=== PATIENT | female | born 1975 | race Caucasian/White ===

== ENCOUNTER 2020-05-07 14:18 | Day surgery (SDC) | payer OTHER ==
[~2020-05-07] VITALS: Ht 177.8 cm; Wt 79.3 kg
[~2020-05-07 14:18] MED LIST: BUPIVACAINE/PF 0.5% ONE; EPINEPHRINE 1 MG/ML, 1ML ONE
[2020-05-07 14:52] VITALS: BP 97/59
[2020-05-07] MEDS ORDERED: PLEASE ENTER ALLERGIES MC SCH (15:00)
[2020-05-07] MEDS ORDERED: CHLORHEXIDINE 15 ML UDC PO ONE (15:00)
[2020-05-07] MEDS ORDERED: PLEASE ENTER HEIGHT AND WEIGHT MC SCH (15:00)
[2020-05-07] MEDS ORDERED: LIDOCAINE-MPF 1%, 2ML INFIL ONE (15:00)
[2020-05-07] MEDS ORDERED: LACTATED RINGERS 1,000 ML IV SCH ×2 (15:00→17:30)
[2020-05-07] MEDS ORDERED: FENTANYL PF 250 MCG/5ML ONE ×2 (15:01→16:53)
[2020-05-07] MEDS ORDERED: MIDAZOLAM 1 MG/ML, 2ML ONE (15:01)
[2020-05-07] MEDS ORDERED: ROCURONIUM 10MG/ML,5ML ONE (15:03)
[2020-05-07] MEDS ORDERED: CEFAZOLIN 1,000 MG ONE (15:03)
[2020-05-07] MEDS ORDERED: ONDANSETRON 2MG/ML, 2ML ONE (15:03)
[2020-05-07] MEDS ORDERED: NEOSTIGMINE 1 MG/ML, 10ML ONE (15:03)
[2020-05-07] MEDS ORDERED: PROPOFOL 10 MG/ML, 20ML ONE (15:03)
[2020-05-07] MEDS ORDERED: GLYCOPYRROLATE 0.2MG/1ML, 5ML ONE (15:03)
[2020-05-07] MEDS ORDERED: SCOPOLAMINE 1MG PATCH TD STA (15:52)
[2020-05-07] MEDS ORDERED: MEPERIDINE/PF 25MG/0.5ML IVPush PRN (16:00)
[2020-05-07] MEDS ORDERED: morphine SULFATE 10 MG/ML, 1ML IVPush PRN ×2 (16:00→17:30)
[2020-05-07] MEDS ORDERED: PROMETHAZINE 25 MG/ML, 1ML IVPush PRN (16:00)
[2020-05-07] MEDS ORDERED: hydrALAzine 20 MG/ML, 1ML IV PRN (16:00)
[2020-05-07] MEDS ORDERED: ACETAMINOPHEN 325 MG TABLET PO PRN (16:00)
[2020-05-07] MEDS ORDERED: HALOPERIDOL 5 MG/ML IV PRN (16:00)
[2020-05-07] MEDS ORDERED: LABETALOL 5MG/ML, 20ML IV PRN (16:00)
[2020-05-07] MEDS ORDERED: HYDROmorphone 1 MG/ML, 1ML INJ IVPush PRN (16:00)
[2020-05-07] MEDS ORDERED: FENTANYL PF 100 MCG/2ML IV PRN (16:00)
[2020-05-07] MEDS ORDERED: PROPOFOL 50 ML ONE (16:03)
[2020-05-07] MEDS ORDERED: HYDROcodone/APAP 7.5-325MG/15ML UDC PO PRN ×2 (17:30)
[2020-05-07] MEDS ORDERED: ONDANSETRON 2MG/ML, 2ML IVPush PRN (17:30)
[2020-05-07] MEDS ORDERED: OXYcodone 5 MG/5 ML ORAL.SOL UDC ONE ×2 (17:35→18:14)
[2020-05-07] MEDS ORDERED: MEPERIDINE/PF 25MG/ML,1ML ONE (17:35)
[2020-05-07] MEDS: OXYcodone 5 MG/5 ML ORAL.SOL UDC PO PRN ×2 (17:48→18:15)
[2020-05-07] MEDS ORDERED: PROMETHAZINE 25 MG/ML, 1ML ONE (17:54)
== END 2020-05-07 20:30 | disposition home or self-care (01) ==
LOC: OR 14:18
PROVIDERS: ATTEND Thoracic Surgery (Cardiothoracic Vascular Surgery)
DX: K82.8 Other specified diseases of gallbladder (principal); K81.1 Chronic cholecystitis; K66.0 Peritoneal adhesions (postprocedural) (postinfection); F32.9 Major depressive disorder, single episode, unspecified; I10 Essential (primary) hypertension; K21.9 Gastro-esophageal reflux disease without esophagitis; E78.00 Pure hypercholesterolemia, unspecified; Z20.822 Contact with and (suspected) exposure to COVID-19; Z79.899 Other long term (current) drug therapy; Z98.84 Bariatric surgery status; Z91.012 Allergy to eggs; Z98.890 Other specified postprocedural states; Z83.3 Family history of diabetes mellitus; Z82.49 Family history of ischemic heart disease and other diseases of the circulatory system
CPT/HCPCS: 47562; 87635; 88304; J0171; J0690; J2175; J2250; J2405; J2550; J2704; J2710; J3010; J7120